=== PATIENT | female | born 1940 | race Caucasian/White ===

== ENCOUNTER 2019-09-14 11:54 | Outpatient (CLI) | payer MEDICARE, OTHER, SELFPAY ==
--- NOTE | 2019-09-14 11:56 | MM_ITS ---
WS: [id number] BILATERAL DIGITAL SCREENING MAMMOGRAPHY WITH CAD CLINICAL INFORMATION: SCREENING HISTORY: Screening mammogram. No current complaints. COMPARISON: TECHNIQUE: Bilateral CC and MLO views. FINDINGS: The breasts are composed of heterogeneous fibroglandular density tissue, which can limit the detectio n of small underlying mass lesions. Increasing focal oval density inner right breast measuring 7.5 mm . Recommend right breast spot compression views and ultrasound. Left breast is unchanged. Stable punctate calcifications right breast. Stable nodular breast parenchyma bilaterally. Vascular c alcification. Lucent centered calcifications. MM/[id number] IMPRESSION: BI-RADS: 0-Incomplete: Need additional imaging evaluation FOLLOW UP: Need Additional Imaging
== END 2019-09-14 11:55 | disposition home or self-care (01) ==
LOC: RADSHAW 11:55
PROVIDERS: Family Provider Nurse Practitioner; PCP Nurse Practitioner; Visit Provider Nurse Practitioner
DX: Z12.31 Encounter for screening mammogram for malignant neoplasm of breast (principal)
CPT/HCPCS: 77067

== ENCOUNTER 2019-10-05 11:09 | Outpatient (CLI) | payer MEDICARE, OTHER, SELFPAY ==
--- NOTE | 2019-10-05 11:46 | US_ITS ---
WS: [id number] RIGHT DIGITAL MAMMOGRAPHY WITH CAD CLINICAL INFORMATION: RT BREAST DENSITY HISTORY: Additional views COMPARISON: September 14, 2019 TECHNIQUE: 3 views of the right breast were obtained. FINDINGS: The right breast is composed of heterogeneous fibroglandular density tissue, which can limit the dete ction of small underlying mass lesions. Again seen are the 7-8 mm focal oval densities inner right br east unchanged since the screening mammogram. This persists on the spot compression views. Ultrasound is pending. ULTRASOUND BREAST RIGHT TECHNIQUE: Ultrasound right breast focused area of concern. CLINICAL INFORMATION: RT BREAST DENSITY FINDINGS: Multiple hypoechoic lesions. A small amount of internal echogenicity likely internal debris may repre sent complex cyst but technically indeterminant. Largest hypoechoic lesion measures 6.7 x 6.4 x 7.3 m m. 2 additional hypoechoic lesions measuring 5.2 x 7.3 x 8.1 mm and 2.8 x 3.0 x 4.5 mm These are probabl y benign and recommend 6 month interval follow-up with RIGHT diagnostic mammography and ultrasound to confirm stability. US/US breast RT limited* [id number] IMPRESSION: BI-RADS: 3-Probably Benign FOLLOW UP: 6 Month Follow-up
== END 2019-10-05 11:10 | disposition home or self-care (01) ==
LOC: RADSHAW 11:09
PROVIDERS: Family Provider Nurse Practitioner; PCP Nurse Practitioner; Visit Provider Nurse Practitioner
DX: N64.89 Other specified disorders of breast (principal)
CPT/HCPCS: 76642; 77065

== ENCOUNTER 2020-04-06 08:42 | Outpatient (CLI) | payer MEDICARE, OTHER, SELFPAY ==
--- NOTE | 2020-04-06 08:53 | MM_ITS ---
WS: [id number] RIGHT DIGITAL MAMMOGRAPHY WITH CAD CLINICAL INFORMATION: RT BR DENS COMPARISON: October 05, 2019 TECHNIQUE: 6 views of the right breast were obtained. FINDINGS: Scattered fibroglandular densities of the right breast. Again seen are the 7-8 millimeter focal oval densities in the right breast is not significant changed compared to previous. This is persistent on spot compression views. Ultrasound is pending. Punctate and lucent centered calcifications. Vascular calcifications. ULTRASOUND BREAST RIGHT TECHNIQUE: Ultrasound right breast focused area of concern. CLINICAL INFORMATION: RT BR DENS COMPARISON: October 05, 2019 FINDINGS: Several small subcentimeter cysts and hypoechoic lesions similar in appearance to the prior examinati on. Some of these demonstrate internal echoes likely complex cysts. Recommend additional six-month fo llow-up to confirm stability. MM/[place] [id number] IMPRESSION: BI-RADS: 2-Benign FOLLOW UP: 1 Year Follow-up Recommend additional six-month follow-up with right diagnostic mammography and ultrasound to confirm stability
== END 2020-04-06 08:43 | disposition home or self-care (01) ==
LOC: RADSHAW 08:47
PROVIDERS: Visit Provider Nurse Practitioner
DX: R92.8 Other abnormal and inconclusive findings on diagnostic imaging of breast (principal); N60.01 Solitary cyst of right breast
CPT/HCPCS: 76642; 77065

== ENCOUNTER → 2020-04-25 14:30 | Outpatient (BNVA) | payer MEDICARE, OTHER, SELFPAY | PROVIDERS: Family Provider Nurse Practitioner; PCP Nurse Practitioner; Visit Provider Specialist | DX: G31.84 Mild cognitive impairment of uncertain or unknown etiology (principal); G43.711 Chronic migraine without aura, intractable, with status migrainosus | CPT/HCPCS: 96116; 99215 ==

== ENCOUNTER 2020-04-26 15:06 | Outpatient (CLI) | payer MEDICARE, OTHER, SELFPAY ==
--- NOTE | 2020-04-26 15:15 | MR_ITS ---
WS: [id number] MRI HEAD WITHOUT CONTRAST TECHNIQUE: Sagittal T1, T2 axial, T2 axial FLAIR, axial and coronal T1 images, axial susceptibility w eighted imaging, axial diffusion weighted images, and coronal T2 images were obtained. 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 Ventricular system and basal cisterns are patent. Moderate small vessel changes. Mild parenchymal volume loss. Normal posterior fossa. Norm al vascular flow voids at the skull base. No extra-axial fluid collections. No evidence of mass or ma ss effect. Normal optic chiasm and pituitary infundibulum. Normal cavernous sinuses and Meckel's cave. Mild to m oderate symmetric atrophy involving the temporal lobes and hippocampal formations. Innumerable foci of hemosiderin visualized on the susceptibility weighted imaging with a lobar distri bution in a cortical and subcortical location. Relative sparing of the cerebellum and basal ganglia t ypical of amyloid angiopathy. This is similar in appearance to 2018. Small vessel changes appear relatively stable since 2018. Small vessel changes in the ronna. MR/MR head wo con* [id number] IMPRESSION: 1. No evidence of restricted Diffusion to suggest acute ischemia. 2. Innumerable foci of susceptibility artifact consistent with microhemorrhage s with a lobar distribution typical of amyloid angiopathy. This is stable in ap pearance since 2018 3. Moderate supratentorial white matter changes compatible with small vessel d isease in a patient this age not significantly changed. Mild parenchymal volume loss. 4. Mild symmetric atrophy involving the temporal lobes and hippocampal formati ons. Normal optic chiasm. 5. No other significant changes from previous
== END 2020-04-26 15:07 | disposition home or self-care (01) ==
LOC: RADSHAW 15:06
PROVIDERS: Visit Provider Specialist
DX: I61.8 Other nontraumatic intracerebral hemorrhage (principal); G31.9 Degenerative disease of nervous system, unspecified
CPT/HCPCS: 70551

== ENCOUNTER → 2020-10-02 13:02 | Outpatient (BNVA) | payer MEDICARE, OTHER, SELFPAY | PROVIDERS: PCP Physician Assistant Medical; Visit Provider Specialist | DX: G43.711 Chronic migraine without aura, intractable, with status migrainosus (principal); E85.4 Organ-limited amyloidosis; I68.0 Cerebral amyloid angiopathy; G62.9 Polyneuropathy, unspecified; G31.84 Mild cognitive impairment of uncertain or unknown etiology | CPT/HCPCS: 99214 ==

== ENCOUNTER 2020-10-03 13:52 | Outpatient (CLI) | payer MEDICARE, OTHER, SELFPAY ==
--- NOTE | 2020-10-03 14:15 | USCV_ITS ---
Brandy Rubalcava Age: 80 Gender: F : 1940 Exam Date: 10/03/2020 14:13 Ordering Phys: Gabriella Andrew MD ([email or web address]) Technologist: Susan Driver [place] [facility] [place]: AMYLOIDOSIS BP: / HR: 68 Rhythm: Sinus Technical Quality: Adequate MEASUREMENTS (Male / Female) Normal Values 2D ECHO LV Chamber Size 3.7 cm RV Chamber Size 3.1 cm LVOT Diameter 2.0 cm LV Ejection Fraction MOD 2C 51.0 % LV Ejection Fraction 2C AL 54.1 % LA Diameter 2.9 cm LA Width 3.3 cm LA Height 3.9 cm RA Width 3.2 cm RA Height 3.6 cm Aorta at Sinotubular Diameter 3.1 cm M-MODE LV Diastolic Diameter MM 3.8 cm 4.2 - 5.9 / 3.9 - 5.3 cm LV Systolic Diameter MM 2.3 cm LV Ejection Fraction MM Teich 71.6 % IVS Diastolic Thickness MM 1.0 cm 0.6 - 1.0 / 0.6 - 0.9 cm IVS Systolic Thickness MM 1.5 cm LVPW Diastolic Thickness MM 1.4 cm 0.6 - 1.0 / 0.6 - 0.9 cm LVPW Systolic Thickness MM 1.6 cm RV Diastolic Diameter MM 1.2 cm DOPPLER AV Peak Velocity 109.0 cm/s LVOT Peak Velocity 89.0 cm/s AV Area Cont Eq vti 2.6 cm squared AV Area Cont Eq pk 2.6 cm squared MV Area PHT 3.7 cm squared Mitral E to A Ratio 1.2 MV E' Velocity 50.0 cm/s Mitral E to MV E' Ratio 10.7 Mitral E to LV E' Lateral Ratio 10.5 Mitral E to LV E' Septal Ratio 11.1 TR Peak Velocity 229.8 cm/s TR Peak Gradient 21.1 mmHg TR Mean Velocity 174.8 cm/s TR Mean Gradient 13.5 mmHg TR Velocity Time Integral 65.1 cm TV Peak E Velocity 72.0 cm/s Right Atrial Pressure 3.0 mmHg Pulmonary Artery Systolic Pressu 24.1 mmHg PV Peak Velocity 65.0 cm/s RV Acceleration Time 0.1 s RV Ejection Time 0.3 s RV AcT/ET 0.3 FINDINGS Left Ventricle Normal left ventricular cavity size. Normal left ventricular systolic function. No regional wall motion abnormalities. Left ventricular ejection fraction is estimated at 65 %. Grade II/IV diastolic dysfunction, moderately elevated filling pressures. Right Ventricle The right ventricle is normal in size and function. Right Atrium The right atrium is normal in size. Left Atrium The left atrium is normal in size. Mitral Valve Moderately thickened mitral valve. No mitral valve stenosis. Trace mitral valve regurgitation. Aortic Valve Moderate aortic valve calcification. No aortic valve stenosis. No aortic valve regurgitation. Tricuspid Valve Structurally normal tricuspid valve without significant stenosis, mild regurgitation. Pulmonary artery systolic pressure is normal. Pulmonic Valve Structurally normal pulmonic valve without significant stenosis. There is no pulmonic regurgitation. Pericardium Normal pericardium without effusion. Aorta Normal ascending aorta dimension. CONCLUSIONS 1-Normal left ventricular cavity size. Normal left ventricular systolic function. No regional wall motion abnormalities. Left ventricular ejection fraction is estimated at 65 %. Grade II/IV diastolic dysfunction, moderately elevated filling pressures. 2-There is no pericardial effusion. 3-Moderate aortic valve calcification. No aortic valve stenosis. No aortic valve regurgitation. 4-Moderately thickened mitral valve. No mitral valve stenosis. Trace mitral valve regurgitation. 5-There is no pericardial effusion. 6-Pulmonary artery systolic pressure is within normal limits. 7-Right atrial pressure is around 5 mm of mercury. 8-When compared to the prior echocardiogram tricuspid and mitral valve regurgitation has improved from moderate to trace and mild, Otherwise there appeared to be no significant interim change. Gabriella Andrew MD (Electronically Signed) Final Date: 05 October 2020 19:46 S
== END 2020-10-03 13:53 | disposition home or self-care (01) ==
LOC: US 13:53
PROVIDERS: PCP Physician Assistant Medical; Visit Provider Internal Medicine Cardiovascular Disease
DX: E85.9 Amyloidosis, unspecified (principal); I08.0 Rheumatic disorders of both mitral and aortic valves
CPT/HCPCS: 93306

== ENCOUNTER 2021-05-16 12:51 | Outpatient (CLI) | payer MEDICARE, OTHER, SELFPAY ==
--- NOTE | 2021-05-16 13:21 | MM_ITS ---
WS: [id number] DIAGNOSTIC BILATERAL DIGITAL MAMMOGRAM WITH CAD HISTORY: CYST OF RIGHT BREAST COMPARISON: 04/06/2020. TECHNIQUE: Bilateral craniocaudad, mediolateral oblique, and mediolateral views are submitted. Spot c ompression RIGHT MLO and cc. Computer aided detection utilized. Breast composition: The breasts are heterogeneously dense, which may obscure small masses. No residua l asymmetries or increasing asymmetry size or nodules. No increasing calcifications as identified on 09/14/2019. No additional imaging necessary. MM/[place] [id number] IMPRESSION: BI-RADS: 2-Benign FOLLOW UP: 1 Year Follow-up
== END 2021-05-16 12:52 | disposition home or self-care (01) ==
PROVIDERS: PCP Physician Assistant; Visit Provider Physician Assistant
DX: N60.01 Solitary cyst of right breast (principal)
CPT/HCPCS: 77066

== ENCOUNTER 2022-04-29 07:38 | Day surgery (SDC) | payer MEDICARE, OTHER, SELFPAY ==
[2022-04-26 12:24] VITALS: BMI 21.4
--- NOTE | 2022-04-29 07:42 | W.PM.OPSFHP ---
Same Day Surgery H&P Indication for Procedure/HPI DATE OF PROCEDURE: April 29, 2022 CHIEF COMPLAINT/INDICATIONFOR SURGICAL PROCEDURE: Screening and epigastric pain PREOP DIAGNOSIS: Screening and epigastric pain PLANNED PROCEDURE: Operation Date: 04/29/22 09:15 Proposed Procedures p EGD 66710 R10.13(Not Applicable) - Nick Mayfield MD s Colonoscopy(Not Applicable) - Nick Mayfield MD Medications/Allergies* Home Medications Medication Instructions Recorded Confirmed Type hydrochlorothiazide 25 mg tablet 12.5 mg PO BID 09/14/19 04/26/22 History levothyroxine 50 mcg capsule 50 mcg PO DAILY 09/14/19 04/26/22 History sumatriptan succinate 50 mg tablet 50 mg PO Q2H PRN headaches 09/14/19 04/26/22 History (Imitrex) donepezil 10 mg tablet 10 mg PO DAILY 04/25/22 04/26/22 History fluticasone propionate 50 1 spray intranasal BID PRN Allergy 04/25/22 04/26/22 History mcg/actuation nasal Symptoms spray,suspension (Flonase Allergy Relief) Allergies/Adverse Reactions Allergy/AdvReac Type Severity Reaction Status Date / Time Tetanus Vaccines and Toxoid Allergy unk Verified 04/26/22 12:21 Pertinent History/Comorbid Conditions* Medical History (Updated 04/25/22 @ 10:33 by Nick Mayfield MD) Bilateral carotid artery stenosis minimal disease on 2018 carotid duplex Essential hypertension Shortness of breath Surgical History (Updated 09/14/19 @ 10:45 by TORRI Evans) Hx of bilateral oophorectomy Hx of breast biopsy Hx of hysterectomy Hx of tonsillectomy Hx of tubal ligation Family History (Updated 09/14/19 @ 10:32 by Michell Hatfield RN) CAD (coronary artery disease) Father Cancer Father Denies family history of Diabetes Clotting disorder Dementia Hyperlipidemia Psychiatric illness Chronic kidney disease (CKD) Suicide Anesthesia complication Bleeding disorder Family history of premature coronary artery disease Lung disease Hypertension Stroke Social History Smoking and tobacco status: never smoked Second hand smoke exposure: Yes Alcohol intake: never Pertinent Exam Findings alert, oriented x 3, clear to auscultation bilaterally, regular rate & rhythm, operative site marked and procedure specific exam findings Recommendations Surgery/Procedure today Coding Level of Care Code Acute Technology Specialist for Darshang Dorian
[2022-04-29 08:01] VITALS: BP 124/78; PULSE 94; RESP 18; TEMP 36.2; O2SAT 97
[2022-04-29] MEDS: sodium chloride 0.9% 1,000 ML 30 ML IV (08:13)
--- NOTE | 2022-04-29 08:37 | ANES.PREANE2 ---
Pre-Anesthetic Assessment Height/Weight: Height 1.68 m Weight 60.328 kg Temp Pulse Resp BP Pulse Ox O2 Del Method 97.1 F L 94 18 124/78 97 04/29/22 08:01 04/29/22 08:01 04/29/22 08:01 04/29/22 08:01 04/29/22 08:01 04/29/22 08:01 Preop Diagnosis: Polyps, Post prandial pain Operation Date: 04/29/22 09:15 Proposed Procedures p EGD 91151 R10.13(Not Applicable) - Nick Mayfield MD s Colonoscopy(Not Applicable) - Nick Mayfield MD Familial anesthetic complications: none Was Beta Chandni taken within 24 hours: N/A Was Clonidine taken within 24 hours: N/A Last intake: Intake Last Liquid Date 04/28/22 Last Liquid Time 22:00 Last Solid Date 04/27/22 Last Solid Time 22:00 Social No alcohol and No tobacco Exam alert, oriented x 3, clear to auscultation bilaterally and regular rate & rhythm Airway Mallampati: Class II Dentition: full CV/HEM Hypertension Metabolic Diabetes Mellitus and Thyroid Disease Neuropsych Alzheimer's w/ amyloid angiopathy Anesthetic Plan ASA status: 3 Anesthesia: MAC Risk of > 500 ml blood loss (7ml/kg in children): No Medications/Allergies Home Medications Medication Instructions Recorded Confirmed Last Taken Type hydrochlorothiazide 25 mg tablet 12.5 mg PO BID 09/14/19 04/29/22 Unknown History levothyroxine 50 mcg capsule 50 mcg PO DAILY 09/14/19 04/29/22 Unknown History sumatriptan succinate 50 mg tablet 50 mg PO Q2H PRN headaches 09/14/19 04/29/22 04/24/22 History (Imitrex) losartan 25 mg tablet 25 mg PO BID #180 tabs 07/30/21 04/29/22 Unknown Rx donepezil 10 mg tablet 10 mg PO DAILY 04/25/22 04/29/22 04/27/22 History fluticasone propionate 50 1 spray intranasal BID PRN Allergy 04/25/22 04/29/22 Unknown History mcg/actuation nasal Symptoms spray,suspension (Flonase Allergy Relief) pantoprazole 40 mg tablet,delayed 40 mg PO DAILY 04/29/22 04/29/22 04/28/22 History release Allergies Allergy/AdvReac Type Severity Reaction Status Date / Time Tetanus Vaccines and Toxoid Allergy unk Verified 04/29/22 08:14 Current Medications Generic Name Dose Route Start Last Admin Trade Name Kentrell PRN Reason Stop Dose Admin Sodium Chloride 1,000 mls @ 30 mls/hr 04/29/22 07:45 04/29/22 08:13 Sodium Chloride 0.9% IV 04/30/22 07:44 30 mls/hr .Q24H HARDEEP Administration PFSH Anesthesia Medical History Bilateral carotid artery stenosis minimal disease on 2018 carotid duplex Essential hypertension Shortness of breath Surgical History Hx of bilateral oophorectomy Hx of breast biopsy Hx of hysterectomy Hx of tonsillectomy Hx of tubal ligation Family History Father CAD (coronary artery disease) Cancer Denies family history of Diabetes Clotting disorder Dementia Hyperlipidemia Psychiatric illness Chronic kidney disease (CKD) Suicide Anesthesia complication Bleeding disorder Family history of premature coronary artery disease Lung disease Hypertension Stroke Social History Smoking and tobacco status: never smoked Second hand smoke exposure: Yes Alcohol intake: never Data Anesthesia Cardiac Studies: Echocardiogram Ultrasound 10/03/20
[2022-04-29 10:06] VITALS: BP 147/88; PULSE 104; RESP 16; TEMP 36.1; O2SAT 98
[2022-04-29 10:22] VITALS: BP 126/75; PULSE 101; RESP 18; O2SAT 98
--- NOTE | 2022-04-29 13:18 | ANE.PACU2 ---
Inpatient post-anesthesia follow up: Airway intact: Yes Vital signs: Temperature 97 F Pulse Rate 101 Respiratory Rate 18 Blood Pressure 126/75 Pulse Oximetry 98 Oxygen Delivery Me thod Room Air Oxygen Flow Rate Fraction of Inspir ed Oxygen Hydration adequate: Yes Nausea and vomiting: No Pain level: 1 Mental status: Baseline
[2022-04-30 10:39] LABS: H. Pylori / CLO Test Negative
== END 2022-04-29 11:25 | disposition home or self-care (01) ==
PROVIDERS: PCP Physician Assistant; Visit Provider Internal Medicine
PROC: 0DJ08ZZ Inspection of Upper Intestinal Tract, Via Natural or Artificial Opening Endoscopic (ICD-10-PCS; CPT 43235; principal; 2022-04-29 09:15)
PROC: 0DJD8ZZ Inspection of Lower Intestinal Tract, Via Natural or Artificial Opening Endoscopic (ICD-10-PCS; CPT 45378; 2022-04-29 09:15)
DX: Z12.11 Encounter for screening for malignant neoplasm of colon (principal); K29.70 Gastritis, unspecified, without bleeding; I10 Essential (primary) hypertension; Z86.010 Personal history of colon polyps
CPT/HCPCS: 43239; 45378; 87077; J7030

== ENCOUNTER → 2022-05-09 11:17 | Outpatient (BNVA) | payer MEDICARE, OTHER, SELFPAY | PROVIDERS: PCP Physician Assistant; Visit Provider Internal Medicine Cardiovascular Disease | DX: I10 Essential (primary) hypertension (principal) | CPT/HCPCS: 99213; 99214 ==

== ENCOUNTER 2022-05-28 10:07 | Outpatient (CLI) | payer MEDICARE, OTHER, SELFPAY ==
--- NOTE | 2022-05-28 10:16 | MM_ITS ---
WS: [id number] Bilateral screening 3D tomosynthesis digital mammogram, 05/28/2022 Clinical Data: SCREENING Comparison: 05/16/2021, 04/06/2020, 10/05/2019, 09/14/2019, 07/27/2018, 07/04/2017, 07/01/2016, 06/29/2015 , 06/28/2014, 06/16/2013, 06/15/2012 06/04/2011, 05/31/2010, 07/30/2008. Findings: The breast parenchymal pattern shows heterogeneous density No spiculated masses or clustered calcific ations are seen. There are no secondary signs of carcinoma. There are calcifications in the nguyen of small vessels. There are mole markers on the left breast. MM/[place] [id number] Impression: 1. Negative bilateral mammogram unchanged. 2. Recommend annual screening mammograms. BIRADS: 1-Negative FOLLOW UP: 1 Year Follow-up The CAD checker stocker was used.
== END 2022-05-28 10:08 | disposition home or self-care (01) ==
PROVIDERS: PCP Physician Assistant; Visit Provider Physician Assistant
DX: Z12.31 Encounter for screening mammogram for malignant neoplasm of breast (principal)
CPT/HCPCS: 77063; 77067

== ENCOUNTER 2023-03-20 13:10 | Outpatient (CLI) | payer MEDICARE, OTHER, SELFPAY ==
--- NOTE | 2023-03-20 13:16 | XR_ITS ---
WS: [id number] DEXA (DUAL ENERGY X-RAY ABSORPTIOMETRY) Bone mineral density was performed using a [employer] machine. HISTORY: DISORDER OF BONE DENSITY COMPARISON: 11/18/2012 Lumbar spine BMD (L1-L4): 1.058 g/cm2 T score: -1.0 Z score: 0.6 Total hip BMD: Left: 0.786 g/cm2. T score: -1.8 Z score: 0.1 Right: 0.790 g/cm2. T score: -1.7 Z score: 0.2 10 year probability of a major osteoporotic fracture is 18.3% Compared to the prior study from 11/18/2012. Lumbar spine bone mineral density has decreased by 14.1%. Bilateral hips bone mineral density has decreased by 16.7%. IMPRESSION: OSTEOPENIA based upon the WHO classification for females. Significant decrease in bone mineral density within the lumbar spine and hip since 2012.
== END 2023-03-20 13:11 | disposition home or self-care (01) ==
PROVIDERS: PCP Physician Assistant; Visit Provider Physician Assistant
DX: M81.0 Age-related osteoporosis without current pathological fracture (principal)
CPT/HCPCS: 77080

== ENCOUNTER → 2023-05-08 10:47 | Outpatient (BNVA) | payer MEDICARE, OTHER, SELFPAY | PROVIDERS: PCP Physician Assistant; Visit Provider Internal Medicine Cardiovascular Disease | DX: I10 Essential (primary) hypertension (principal) | CPT/HCPCS: 99214 ==

== ENCOUNTER 2023-06-17 10:09 | Outpatient (CLI) | payer MEDICARE, OTHER, SELFPAY ==
--- NOTE | 2023-06-17 10:14 | MM_ITS ---
WS: [id number] BILATERAL 3D TOMOSYNTHESIS DIGITAL SCREENING MAMMOGRAPHY WITH CAD CLINICAL INFORMATION: SCREENING HISTORY: Screening mammogram. No current complaints. COMPARISON: 2021 TECHNIQUE: Bilateral CC and MLO views. FINDINGS: Scattered fibroglandular densities bilaterally. No suspicious focal mass, asymmetry, calcifications, or architectural distortion. No evidence of malignancy. Punctate and lucent centered calcifications. Vascular calcifications. IMPRESSION: MM/[place] [id number] BI-RADS: 2-Benign FOLLOW UP: 1 Year Follow-up Recommend return to annual screening mammography.
== END 2023-06-17 10:10 | disposition home or self-care (01) ==
LOC: RAD 10:09
PROVIDERS: PCP Physician Assistant; Visit Provider Physician Assistant
DX: Z12.31 Encounter for screening mammogram for malignant neoplasm of breast (principal)
CPT/HCPCS: 77063; 77067

== ENCOUNTER → 2023-10-23 10:18 | Outpatient (BNVA) | payer MEDICARE, OTHER, SELFPAY | PROVIDERS: PCP Physician Assistant; Visit Provider Nurse Practitioner Family | DX: I10 Essential (primary) hypertension (principal); R94.31 Abnormal electrocardiogram [ECG] [EKG] | CPT/HCPCS: 93005; 99214 ==

== ENCOUNTER → 2024-03-15 09:30 | Outpatient (BNVA) | payer MEDICARE, OTHER, SELFPAY | PROVIDERS: PCP Physician Assistant; Visit Provider Nurse Practitioner Family | DX: E85.89 Other amyloidosis (principal); I10 Essential (primary) hypertension | CPT/HCPCS: 99213 ==